=== PATIENT | male | born 2000 | race Caucasian/White ===

== ENCOUNTER 2023-12-01 11:12 | Emergency (ER) | payer OTHER, SELFPAY ==
[2023-12-01 11:26] VITALS: BP 113/65; PULSE 60; RESP 18; TEMP 36.2; O2SAT 100
--- NOTE | 2023-12-01 12:01 | ECG_ITS ---
SEE SCANNED COPY FOR CONFIRMED REPORT MTDD
--- NOTE | 2023-12-01 12:02 | ED.DIZZY ---
HPI - Dizziness General Chief Complaint: Nausea/Vomiting/Diarrhea Stated Complaint: dizzy,lightheaded,nausea Time Seen by Provider: 12/01/23 11:51 Source: patient and RN notes reviewed Mode of arrival: ambulatory Limitations: no limitations History of Present Illness HPI Narrative: Patient presents today complaining of dizziness since last night that is worse with head movement. States at 5:00 a.m. this morning he got up to use the restroom and was also experiencing nausea. After he went to bed again and got up later in the morning states he felt a little better but wanted to come in for evaluation. He has been able to drink, but has not tried to eat anything. Denies headache, vomiting, vision changes, numbness or tingling in the extremities, chest pain, shortness breath, abdominal pain, palpitations or racing heart. Denies recent illness. He has tried no [id number] treatment prior to arrival. Related Data Home Medications Medication Instructions Recorded Confirmed No Home Medications 12/01/23 12/01/23 Allergies Allergy/AdvReac Type Severity Reaction Status Date / Time No Known Allergies Allergy Verified 12/01/23 11:38 Review of Systems Review of Systems: CONSTITUTIONAL: Denies body aches, fever, chills, or sweats. EYES: Denies visual changes, redness, or discharge. ENT: Denies rhinorrhea, congestion, sore throat, or otalgia. CARDIOVASCULAR: Denies chest pain, palpitations, or edema. RESPIRATORY: Denies cough or dyspnea. GASTROINTESTINAL: Denies abdominal pain, vomiting, or diarrhea.+ nausea GENITOURINARY: Denies dysuria or hematuria. SKIN: Denies rash, itching, or wounds. MUSCULOSKELETAL: Denies back pain, joint pain, or myalgia. NEUROLOGIC: Denies headache, numbness, tingling, or weakness.+ dizziness, lightheadedness PSYCH: Denies depression or anxiety. PMFSH Comments At time of signature, I have reviewed and agree with nursing past medical, surgical, social and family history unless otherwise noted. Please see nursing chart for further information. There is no relevant family history pertinent to the presenting complaint Exam Narrative: GENERAL: Well-appearing, well-nourished, and in no acute distress. HEAD: Normocephalic, atraumatic. EYES: EOMI. PERRL. No nystagmus. No redness or drainage. Conjunctivae normal. ENT: Mucous membranes pink and moist. Nares clear. No rhinorrhea. TMs normal bilaterally. Throat normal. Uvula midline. NECK: Normal AROM. CHEST: No respiratory distress. Clear to auscultation. HEART: Regular rate and rhythm. No murmur appreciated. Normal peripheral pulses. EXTREMITIES: Normal range of motion. No edema. SKIN: Warm, dry, no rash. Capillary refill normal. Normal skin turgor. NEURO: No focal deficits. Alert and oriented x3. Gait steady. PSYCH: Normal affect. No signs of depression or anxiety. Course Course Emergency Course: 1238- Consulted with collaborating physician, Dr. Pitts. Recommends ER transfer for further evaluation. Report given to ER physician, Dr. Jimenez at [facility]. Level of Care: Express Care Visit Vital Signs Vital signs: Vital Signs Temperature 97.1 F L 12/01/23 11:26 Pulse Rate 60 12/01/23 11:26 Respiratory Rate 18 12/01/23 11:26 Blood Pressure 113/65 12/01/23 11:26 Pulse Oximetry 100 12/01/23 11:26 Oxygen Delivery Room Air 12/01/23 11:26 Temperature 97.1 F L 12/01/23 11:26 Pulse Rate 60 12/01/23 11:26 Respiratory Rate 18 12/01/23 11:26 Blood Pressure 113/65 12/01/23 11:26 Pulse Oximetry 100 12/01/23 11:26 Oxygen Delivery Room Air 12/01/23 11:26 Reviewed Transfer Transfered to: [facility] Transportation: Other (Private vehicle) Transfer rationale: Dizziness, nausea Accepting physician: Tony MDM - Dizziness MDM Narrative Medical decision making narrative: Due to patient's symptoms and EKG findings, recommend ER transfer for further evaluation. Anticipatory
[2023-12-01] MEDS: ONDANSETRON HCL ODT 4 MG TABLET PO (12:13)
[2023-12-01] MEDS: MECLIZINE HCL 25 MG TABLET 50 MG PO (12:13)
== END 2023-12-01 12:51 | disposition short-term general hospital (02) ==
PROVIDERS: Emergency Provider Nurse Practitioner; PCP Family Medicine Sports Medicine
DX: R42 Dizziness and giddiness (principal); R11.0 Nausea
CPT/HCPCS: 93005; 99203; A9270; G0463